=== PATIENT | female | born 1990 | race Two or more races ===

== ENCOUNTER 2022-09-07 07:40 | Emergency (ER) | payer OTHER ==
[~2022-09-07] VITALS: Ht 157.5 cm; Wt 90.7 kg
== END 2022-09-07 10:22 | disposition home or self-care (01) ==
LOC: ER 07:40
DX: U07.1 COVID-19 (principal)

== ENCOUNTER 2022-10-30 08:51 | Emergency (ER) | payer OTHER ==
[~2022-10-30] VITALS: Ht 157.5 cm; Wt 92.1 kg
[2022-10-30] MEDS ORDERED: ANTIVERT25 M2 PO (09:10)
== END 2022-10-30 14:36 | disposition home or self-care (01) ==
LOC: ER 08:51
DX: N93.8 Other specified abnormal uterine and vaginal bleeding (principal); D50.0 Iron deficiency anemia secondary to blood loss (chronic)